=== PATIENT | male | born 1995 | race Caucasian/White ===

== ENCOUNTER 2020-11-27 16:54 | Emergency (ER) | payer OTHER ==
[2020-11-27] MEDS ORDERED: IBUPROFEN600 MG PO (18:27)
== END 2020-11-27 18:34 | disposition home or self-care (01) ==
LOC: ER1 16:54
DX: S33.5XXA Sprain of ligaments of lumbar spine, initial encounter (principal); V49.40XA Driver injured in collision with unspecified motor vehicles in traffic accident, initial encounter; Y92.410 Unspecified street and highway as the place of occurrence of the external cause
CPT/HCPCS: 72131; 99283

== ENCOUNTER 2021-08-07 14:30 | Emergency (ER) | payer OTHER ==
[~2021-08-07 14:30] MED LIST: IBUPROFEN600 MG PO
[2021-08-07] MEDS ORDERED: HYDROCODON-ACE1 EAC2 PO (14:56)
== END 2021-08-07 15:23 | disposition home or self-care (01) ==
LOC: ER1 14:30
DX: S62.337A Displaced fracture of neck of fifth metacarpal bone, left hand, initial encounter for closed fracture (principal); W22.01XA Walked into wall, initial encounter
CPT/HCPCS: 29125; 73130; 99283